=== PATIENT | female | born 1985 | race Hispanic/Latino ===

== ENCOUNTER → 2019-06-12 | Outpatient (CLI) | payer BC ==
--- NOTE | 2019-06-12 11:47 | Diagnostic Imaging Report ---
HISTORY : Abnormal serum levels COMPARISON : None COMMENT : Complete ultrasound examination of the abdomen was performed. The liver is normal in size measuring 13 cm in length along the right midclavicular line and homogeneous in echo-texture without evidence of a focal mass. The gallbladder appears normal without evidence of stones, sludge, wall thickening or pericholecystic fluid. The biliary tract is within normal limits with the common bile duct measuring 3 mm in maximum diameter. The visualized portions of the pancreas are within normal limits. The spleen is normal in size and echo-texture measuring 10.6 x 4.1 x 3.5 cm. The right kidney measures 11.0 cm and the left kidney 10.6 cm in maximum size. There is no evidence of cysts, masses, stones or hydronephrosis. The portal vein measures to a maximum of 0.8 cm in diameter. There is no ascites or pleural effusion. The visualized inferior vena cava, hepatic veins and abdominal aorta are within normal limits. IMPRESSION : Normal ultrasound of the abdomen. Signed by: Rojelio Kramer MD on 06/12/2019 11:44 AM
== END ==
LOC: US 10:06
PROVIDERS: ATTEND Internal Medicine
DX: R74.8 Abnormal levels of other serum enzymes (principal)
CPT/HCPCS: 76700

== ENCOUNTER → 2020-07-07 | Outpatient (CLI) | payer BC | LOC: US 10:57 | PROVIDERS: ATTEND Internal Medicine | DX: R74.8 Abnormal levels of other serum enzymes (principal) | CPT/HCPCS: 76700 ==